=== PATIENT | male | born 1980 | race Caucasian/White ===

== ENCOUNTER 2025-02-22 14:58 | Observation (INO) | payer OTHER ==
[~2025-02-22] VITALS: Ht 177.8 cm; Wt 79.4 kg
[2025-02-22 15:39] LABS: BASOPHILS ABSOLUTE AUTO 0.07 K/mm3 (0.00-0.23); BASOPHILS PERCENT AUTO 1 % (0-2); EOSINOPHILS ABSOLUTE AUTO 0.11 K/mm3 (0.00-0.68); EOSINOPHILS PERCENT AUTO 2 % (0-6); Hematocrit 45.8 % (37.0-53.0); Hemoglobin 15.6 g/dL (13.5-17.5); IMMATURE GRAN ABSOLUTE AUTO 0.02 K/mm3 (0.00-0.10); IMMATURE GRAN PERCENT AUTO 0 % (0-1); LYMPHOCYTES ABSOLUTE AUTO 2.00 K/mm3 (0.84-5.20); LYMPHOCYTES PERCENT AUTO 29 % (21-46); MONOCYTES ABSOLUTE AUTO 0.60 K/mm3 (0.16-1.47); MONOCYTES PERCENT AUTO 9 % (4-13); Mean Corpuscular HGB Conc 34.1 g/dL (31.5-36.5); Mean Corpuscular Volume 96 fL (80-100); NEUTROPHILS ABSOLUTE AUTO 4.20 K/mm3 (1.96-9.15); NEUTROPHILS PERCENT AUTO 60 % (41-73); NRBC ABSOLUTE 0.00 K/mm3 (0.00-0.02); NRBC Auto 0.0 /100 WBC (0.0-0.2); Platelet Count 223 K/mm3 (150-400); RDW Coefficient Variation 12.4 % (11.7-14.2); RDW Standard Deviation 43.9 fL (35.1-46.3)
[2025-02-22 16:00] LABS: Ethanol (Alcohol), Blood, Med <3 mg/dL; Salicylate 2.9 mg/dL (2.8-20.0)
[2025-02-22 16:06] LABS: Alanine Aminotransfer (ALT/SGP 21 U/L (12-78); Albumin, Blood 3.9 g/dL (3.4-5.0); Albumin/Globulin Ratio 1.2 (0.8-1.8); Anion Gap 9 mmol/L (3-11); Aspartate Aminotrans (AST/SGOT 11 U/L (12-37); Bilirubin, Total 0.4 mg/dL (0.1-1.0); Blood Urea Nitrogen 11 mg/dL (8-24); CO2, Blood 25 mmol/L (21-32); Calcium, Blood 9.0 mg/dL (8.5-10.1); Chloride, Blood 108 mmol/L (98-108); Creatinine, Blood 0.74 mg/dL (0.60-1.20); Globulin, Blood 3.3 g/dL (2.2-4.0); Glucose, Blood 94 mg/dL (70-99); Potassium, Blood 3.8 mmol/L (3.5-5.5); Sodium, Blood 138 mmol/L (136-145); Total Protein, Blood 7.2 g/dL (6.4-8.2)
[2025-02-22 16:07] LABS: Acetaminophen, Random <2.0 ug/mL (10.0-30.0)
--- NOTE | 2025-02-22 16:28 | NUR ---
Upon receiving a request from the patient relayed to me from the ED, I visited the patient in ER 23. We talked at length about the spiritual experiences he has had, the spiritual warfare he states that he is in, and the hopeless feelings that he has about being free of the attacks in his mind (and apparently from actual people, but I was unclear about what he was saying). I only advised him about what the Bible says about his "demons." I did not address reality except to say that the clinical professionals at the hospital are on the side of good, light and care, and that they will giving him the tools he needs. Event Designer Mir will be in tomorrow and can continue care for the spiritual distress, if needed. I provided theologicval insights, spiritual guidance and prayer. The patient responded well and showed signs of greater peace.
[2025-02-22 17:19] LABS: Source, Urine Clean Catch
[2025-02-22 17:41] LABS: Bilirubin, Urine Neg (Neg); Glucose Qualitative, Urine Neg (Neg); Ketones, Urine Neg (Neg); Leukocyte Esterase, Urine 1+ (Neg); Protein, Urine Neg (Neg); Specific Gravity, Urine 1.010 (1.003-1.022); Urobilinogen, Urine NORM (Normal)
[2025-02-22 17:43] LABS: Color, Urine Pale Yellow (P-Yellow)
[2025-02-22 17:44] LABS: Red Blood Cells, Urine 0-2 /hpf (0-2)
[2025-02-22 17:48] LABS: U Amphetamine Screen Not Detected; U Barbiturate Screen Not Detected; U Benzodiazapine Screen Not Detected; U Buprenorphine Screen Not Detected; U Cannabinoids Screen DETECTED; U Cocaine Screen Not Detected; U Methadone Screen Not Detected; U Methamphetamine Screen Not Detected; U Opiates Screen Not Detected; U Oxycodone Screen Not Detected; U Phencyclidine Screen Not Detected
== END 2025-02-22 21:30 ==
LOC: ER 14:58 → EOR 14:59
PROVIDERS: Student in an Organized Health Care Education/Training Program; ADMIT Emergency Medicine
DX: F33.2 Major depressive disorder, recurrent severe without psychotic features (principal); R45.851 Suicidal ideations; F60.3 Borderline personality disorder; F20.9 Schizophrenia, unspecified; F12.90 Cannabis use, unspecified, uncomplicated; Z88.2 Allergy status to sulfonamides
CPT/HCPCS: 36415; 80053; 80320; 81001; 85025; 87086; 93005; 93010; 99285; A9270; G0378; G0480

== ENCOUNTER 2025-02-22 16:12 | Inpatient (IN) | payer OTHER ==
[~2025-02-22] VITALS: Ht 177.8 cm; Wt 78.5 kg
[2025-02-22 21:48] VITALS: BP 115/78
[2025-02-22] MEDS ORDERED: FLU VACC TS2025-26(6MOS UP)/PF 45 MCG/0.5 ML SYRINGE IM SCH (22:25)
[2025-02-22] MEDS ORDERED: Aluminum Hydroxide 320MG/5ML 473 ML PO PRN (22:25)
[2025-02-22] MEDS ORDERED: FLU VACC TS2025-26(6MOS UP)/PF 45 MCG/0.5 ML SYRINGE IM ONE (22:25)
[2025-02-22] MEDS ORDERED: Ondansetron 4 MG SoluTab MM PRN (22:25)
[2025-02-22] MEDS ORDERED: Polyethylene Glycol 3350 17 gm PO PRN (22:25)
[2025-02-22] MEDS ORDERED: LORazepam 2 MG/ML 1ML Injection IM SCH (22:30)
[2025-02-22] MEDS ORDERED: DiphenhydrAMINE HCl 50 MG/ML 1ML Vial IM SCH ×2 (22:30→22:35)
[2025-02-22] MEDS ORDERED: Haloperidol Lactate Inj. 5 MG/ML Injection IM SCH (22:30)
[2025-02-22 22:32] VITALS: BP 115/78
--- NOTE | 2025-02-22 22:57 | NUR ---
ADMISSION SUMMARY: PT TO [facility] AT 2135 FROM ER. STATES HE IS HERE BECAUSE "THE DEMONS IN MY HEAD WON'T QUIT TELLING ME HORRIBLE THINGS." PT SPEAKS OF A "SPIRITUAL AWAKENING" IN NOV 2023 WHICH WAS ASSISTED BY PSYCHIDELICS FOR HIS JOURNEY. HE STATES HE LIVED IN THE [facility] FOR A YEAR "TO WORK ON MYSELF" AND WAS HAPPY WITH HIS PROGRESS UNTIL APPROX 2 MONTHS AGO WHEN HE STARTED HEARING VOICES. HE STATES THESE VOICES ARE DEMONS AND ARE ATTACKING HIM BECAUSE OF HIS SPIRITUAL AWAKENING. 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 I'VE DEALT WITH IT ALL MY LIFE AND I KNOW HOW TO HANDLE IT." DOES NOT DISCLOSE ANY INFORMATION ABOUT HIS FAMILY OR HIS HISTORY GROWING UP. STATES HE HAS NO CONTACT WITH ANYONE OTHER THAN HIS FRIEND "ANJALI" IN [place]. PT APPEARS TO BE VERY EDUCATED AND SPEAKS ELOQUENTLY REGARDING HIS SPIRITUAL JOURNEY. 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 ALL OF THAT ENDED WHEN I HAD MY AWAKENING." RECEIVED ZYPREXA IN ER AND HE STATES "I ACTUALLY DON'T HEAR ANY VOICES AT ALL RIGHT NOW. IT'S THE FIRST TIME THEY HAVE BEEN QUIET." DOES STATE HE DOES NOT LIKE HOW SEDATED HE FEELS THOUGH. "I NEED TO BE AWAKE AND AWARE." PT CALM, COOPERATIVE. WISHES TO BE CALLED "PRAKSMICK" PRONOUNCED BRYCE. PLAN FOR 15 MINUTE CHECKS RELATED TO SUICIDAL THOUGHTS.
--- NOTE | 2025-02-23 00:13 | NUR ---
ASSUMPTION OF CARE ASSUMED CARE OF PATIENT FROM ALIREZA STONER AT MIDNIGHT. HE IS CURRENTLY RESTING QUIETLY IN HIS BED. NO SIGNS OF ACUTE DISTRESS NOTED. HE DID NOT RECEIVE ANY PRN MEDICATIONS PRIOR IN THE SHIFT. CONTINUES TO BE MONITORED EVERY 15 MINUTES FOR WELLNESS AND SAFETY.
[2025-02-23] MEDS ORDERED: DiphenhydrAMINE HCl 50 MG/ML 1ML Vial IM PRN (04:15)
[2025-02-23] MEDS ORDERED: LORazepam 2 MG/ML 1ML Injection IM PRN (04:15)
[2025-02-23] MEDS ORDERED: Haloperidol Lactate Inj. 5 MG/ML Injection IM PRN (04:15)
--- NOTE | 2025-02-23 04:32 | NUR ---
END OF SHIFT SUMMARY PATIENT HAS SLEPT SINCE THIS INSIDE SALES ASSOCIATE ASSUMED CARE AT MIDNIGHT. NO PRN MEDICATIONS WERE UTILIZED. PATIENT DOES NOT SEEM TO BE IN ANY ACUTE DISTRESS. CONTINUES TO BE MONITORED EVERY 15 MINUTES FOR WELLNESS AND SAFETY.
[2025-02-23 07:48] LABS: CHOL/HDL RATIO 4.0; Cholesterol 158 mg/dL (50-200); HDL Cholesterol 40 mg/dL (>39); LDL/HDL RATIO 2.3; Low Density Lipoprotein Chol 92 mg/dL (0-110); Triglycerides 131 mg/dL (30-160); Very Low Density Lipoprot Chol 26 mg/dL (6-32)
[2025-02-23 07:58] VITALS: BP 125/81
[2025-02-23] MEDS ORDERED: Multivitamins 1 Tab PO SCH (09:00)
--- NOTE | 2025-02-23 17:51 | NUR ---
SHIFT SUMMARY PT DENIES SI, HI, AVTH. WHEN ASKED ABOUT HALLUCINATIONS THIS AM, PT STATED, "YOU WOULD CALL THEM HALLUCINATIONS" WHEN ASKED TO ELABORATE, PT STATED, "DEMONIC POSSESSION". BESIDES THIS PT HAS NOT ENDORSED ANY OTHER DELUSIONS TO THIS RN AND ANSWERS QUESTIONS/MAKES REQUESTS APPROPRIATELY. ATTENDED GROUPS AND MEALS. NO OTHER ACUTE EVENTS TODAY.
[2025-02-23 19:29] VITALS: BP 118/78
--- NOTE | 2025-02-24 04:27 | NUR ---
SHIFT SUMMARY PATIENT RESTING QUIETLY IN BED. ABLE TO HOLD GOOD CLEAR CONVERSATION. DENIES SI, HI. VERBALIZED THAT HE DOESN'T HEAR VOICES EXPLAINED THAT THE THOUGHT IS "GRAFTED INTO MY THINKING" "I CAN ONLY DESCRIBE IT DEMONIC". DENIES VISUAL HALLUCINATIONS "THEY ARE IN ME". COOPERATIVE WITH HS MEDICATIONS. APPEARS TO BE SLEEPING WELL T/O NIGHT WITH SNORING RESP OFF AND ON. CONTINUE TO MONITOR Q15MIN. NO PRN MEDICATIONS NEEDED T/O NIGHT
[2025-02-24 07:44] VITALS: BP 149/99
--- NOTE | 2025-02-24 16:58 | NUR ---
SHIFT SUMMARY: PT IS ALERT, ORIENTED AND COOPERATIVE WITH CARE. HE APPEARS WELL GROOMED AND HAS APPROPRIATE EYE CONTACT. STATES THAT HIS MOOD IS "OK, BETTER THAN YESTERDAY" STATES THAT "THE VOICES ARE INSIDE ME", STATES "IT'S AT POSSESSION LEVEL". STATES THAT HE SPOKE WITH SPRITUAL CARE AND BEFORE AND WOULD LIKE TO TALK TO THEM AGAIN. PT IS COMPLIANT WITH MEDCIATIONS AND EUTHYMIC AFFECT. PT WAS PRESENT ON THE UNIT, ATTENDED MEALS AND GROUPS. HE SPENT TIME RESTING IN HIS ROOM AND IN THE DAY ROOM WATCHING TV. PT MONITORED WTIH Q 15 MIN CHECKS FOR SAFETY PER UNIT PROTOCOL.
--- NOTE | 2025-02-25 04:51 | NUR ---
SHIFT SUMMARY PATIENT RESTING QUIETLY IN BED. HAVING CLEAR AND CONCISE CONVERSATION. VERBALIZED THAT HE IS FEELING "MOROSE" TONIGHT. CONTINUES TO FEEL IF DEMONS ARE GRAFTING THOUGHTS INTO HIS THINKING. PATIENT DENIES SI, HI OR VTH. PATIENT VERBALIZED THAT THE DEMONS ARE EASIER TO MANAGE, BUT HE IS FEELING SLUGGISH AND TIRED WITH THE MEDICATIONS. REQUESTING MELATONIN FOR SLEEP AID. APPEARS TO BE SLEEPING WELL T/O NIGHT RESP EVEN AND UNLABORED. CONTINUE TO MONITOR Q15MIN
[2025-02-25 09:16] VITALS: BP 131/83
--- NOTE | 2025-02-25 17:42 | NUR ---
SHIFT SUMMARY PT WOKE SHORTLY AFTER START OF SHIFT, PRESENTING ALERT AND ORIENTED WITH GOOD HYGIENE, GOOD EYE CONTACT AND NORMAL TONE OF SPEECH. PT IS VERY PLEASANT, COOPERATIVE AND COMPLIANT WITH MEDICATION, PARTICIPATING IN MEALS/GROUPS. HE HAS DENIED SI/HI/AVH. ACTIVE IN THE MILIE[place], MEALS & GROUP. PT RECEIVED INVEGA INJECTION TODAY. HE STATES HE HAS A MENTAL HEALTH PROVIDER IN [place], [place] AND THAT IS WHERE HE'S HAD HIS PREVIOUS INVEGA SHOTS. PT HAS DISCUSSED A DESIRE FOR A POSSIBLE DISCHARGE BUT STATED ONLY WHEN THE PROVIDER AND STAFF FEEL IT'S THE RIGHT TIME. HE STS FEELING SAFE HERE. THIS RN ENCOURAGE HIM TO STAY THROUGH THE WEEKEND TO GIVE INVEGA TIME TO DO IT'S THING. PT HAS RECEIVED Q15 MIN VISUAL SAFETY CHECKS THROUGHOUT THIS SHIFT
[2025-02-25 19:37] VITALS: BP 140/81
--- NOTE | 2025-02-25 21:41 | NUR ---
PRN MEDICATION ADMINISTRATION: PATIENT REQUESTED AND WAS GIVEN MELATONIN 3 MG FOR C/O INSOMNIA AT 2051. PATIENT REQUESTED AND WAS GIVEN VISTARIL 50 MG FOR C/O MILD ANXIETY AT 2051, MASS SCORE WAS 3. CONTINUING TO MONITOR FOR EFFECTIVENESS.
--- NOTE | 2025-02-26 04:35 | NUR ---
SHIFT SUMMARY: PATIENT IS A 44 YEAR OLD MALE ADMITTED TO THE [facility] ON 02/22/25 WITH SI WITH DEPRESSION. HE STATED THAT HE LIVES "IN MY CAR. I GO FROM TOWN TO TOWN, BUT I MOSTLY STAY IN MY HOME [place]. THAT'S WHERE MY BEST FRIEND LIVES." HE ASKED, "SHOULD THE INVEGA WORK SO QUICKLY? I GOT IT TODAY (02/25) AND FEEL MUCH BETTER." HE TALKED ABOUT POSSIBLE DISCHARGE 02/26/25. HE SAID HE WOULD GO "BACK TO [place]". HE DENIED SUICIDAL IDEATION, THOUGHTS OF SELF HARMING AND A/V/T HALLUCINATIONS. HE STATED THAT HE IS FUTURE ORIENTED AND LOOKING FOWARD TO "MOVING ON WITH LIFE". HE PARTICIPATED IN SNACK AND WRAP UP GROUP, AND WAS COMPLIANT WITH MEDICATION ADMINISTRATION. HE REQUESTED AND WAS GIVEN THE FOLLOWING PRNS: MELATONIN 3 MG PO PRN FOR INSOMNIA AT 2051 VISTARIL 50 MG PO PRN FOR ANXIETY MASS SCORE 3 AT 2051 BOTH PRNS WERE EFFECTIVE, PATIENT WAS NOTED TO BE RESTING QUIETLY WITH EYES CLOSED AND RESPIRATIONS CONFIRMED FOR THE REMAINDER OF THE SHIFT.CONTINUING TO MONITOR FOR SAFETY WITH Q15 MINUTE CHECKS.
[2025-02-26 08:09] VITALS: BP 143/94
[2025-02-26] MEDS ORDERED: RISP1 PO (11:08)
--- NOTE | 2025-02-26 14:03 | NUR ---
DISCHARGE SUMMARY PT DC AT 1317 FROM [facility]. ALL BELONGINGS RETURNED. HE HAD HIS CAR PARKED OVER AT [facility] EMERGENCY DEPT. HE PLANS TO RETURN TO [place], [place]. HE HAS A PLANNED APPOINTMENT ON Saturday03/01/25 FOR FOLLOW UP AND PT WAS VERY THANKFUL FOR THIS. ESCORTED TO DOOR BY HAM
== END 2025-02-26 13:17 | disposition home or self-care (01) | DRG 883 ==
LOC: BHU 16:12
PROVIDERS: ADMIT Psychiatry & Neurology Psychiatry
DX: F60.3 Borderline personality disorder (principal); F33.2 Major depressive disorder, recurrent severe without psychotic features; Z59.00 Homelessness unspecified; F12.90 Cannabis use, unspecified, uncomplicated
CPT/HCPCS: 36415; 80061; 83036; A9270